=== PATIENT | male | born 1980 | race Caucasian/White ===

== ENCOUNTER → 2017-01-28 | Outpatient (CLI) | payer BC | LOC: MOB LAB 16:59 | PROVIDERS: ATTEND Student in an Organized Health Care Education/Training Program | DX: R30.0 Dysuria (principal); R10.84 Generalized abdominal pain | CPT/HCPCS: 87088 ==

== ENCOUNTER → 2017-03-26 | Outpatient (CLI) | payer BC ==
--- NOTE | 2017-03-26 17:01 | DI ---
XR ANKLE COMPLETE MIN 3VW,03/26/2017 3:26 PM: Clinical History: Acute left ankle pain Previous Exam: None at this facility. Findings: 3 views of the left ankle are obtained, and demonstrate a large amount of soft tissue swelling over t he lateral malleolus. No fractures seen. Impression: Soft tissue swelling over the left lateral malleolus without fractures.
== END ==
LOC: MOB RAD 15:29
DX: M25.572 Pain in left ankle and joints of left foot (principal); M25.472 Effusion, left ankle; X50.1XXA Overexertion from prolonged static or awkward postures, initial encounter; Y93.67 Activity, basketball
CPT/HCPCS: 73610